=== PATIENT | female | born 1965 | race Caucasian/White ===

== ENCOUNTER → 2017-01-03 16:55 | Outpatient (CLI) | payer BC ==
[2014-08-27 15:09] VITALS: BMI 21.0
[~2017-01-03 16:55] MED LIST: COLACE100 MG PO; HYDROCODON-ACE1 EAC7 PO; IBUPROFEN600 MG PO; IBUPROFEN800 MG PO; MACROBID100 MG PO; PERCOCET 10/3251 TA1 PO; PROTONIX40 MG PO; ROBAXIN500 MG PO; VIVELLE-DOT 00.05 MG TD
== END | disposition home or self-care (01) ==
LOC: D.MAMMO 08:15
DX: Z12.31 Encounter for screening mammogram for malignant neoplasm of breast (principal)

== ENCOUNTER → 2017-01-13 16:47 | Outpatient (CLI) | payer BC ==
[2014-08-27 15:09] VITALS: BMI 21.0
== END | disposition home or self-care (01) ==
LOC: D.MAMMO 09:00 → D.US 01-25 11:30 → D.MAMMO 01-31 14:30
DX: R92.8 Other abnormal and inconclusive findings on diagnostic imaging of breast (principal)

== ENCOUNTER → 2017-11-15 16:40 | Outpatient (CLI) | payer BC ==
[2014-08-27 15:09] VITALS: BMI 21.0
== END | disposition home or self-care (01) ==
LOC: D.MAMMO 10-25 13:30
DX: N64.4 Mastodynia (principal); N63.10 Unspecified lump in the right breast, unspecified quadrant

== ENCOUNTER 2018-11-16 09:00 | Outpatient (CLI) | payer BC ==
[2014-08-27 15:09] VITALS: BMI 21.0
== END 2018-11-16 10:00 | disposition home or self-care (01) ==
LOC: D.MAMMO 09:00
PROVIDERS: ATTEND Family Medicine
DX: Z12.31 Encounter for screening mammogram for malignant neoplasm of breast (principal)

== ENCOUNTER → 2018-11-30 09:00 | Outpatient (CLI) | payer BC ==
[2014-08-27 15:09] VITALS: BMI 21.0
== END | disposition home or self-care (01) ==
LOC: D.MAMMO 09:00
PROVIDERS: ATTEND Family Medicine
DX: N64.89 Other specified disorders of breast (principal)

== ENCOUNTER → 2020-03-13 07:33 | Outpatient (CLI) | payer BC ==
[2014-08-27 15:09] VITALS: BMI 21.0
== END | disposition home or self-care (01) ==
LOC: D.US 07:33
PROVIDERS: ATTEND Family Medicine
DX: M71.20 Synovial cyst of popliteal space [Baker], unspecified knee (principal); I80.9 Phlebitis and thrombophlebitis of unspecified site

== ENCOUNTER 2020-04-30 17:00 | Outpatient (CLI) | payer BC ==
[2014-08-27 15:09] VITALS: BMI 21.0
== END 2020-04-30 23:59 | disposition home or self-care (01) ==
LOC: D.MAMMO 17:00
PROVIDERS: ATTEND Obstetrics & Gynecology
DX: Z12.31 Encounter for screening mammogram for malignant neoplasm of breast (principal)

== ENCOUNTER 2020-05-11 08:00 | Outpatient (CLI) | payer BC ==
[2014-08-27 15:09] VITALS: BMI 21.0
== END 2020-05-11 14:37 | disposition home or self-care (01) ==
LOC: D.MAMMO 08:00
PROVIDERS: ATTEND Family Medicine
DX: R92.8 Other abnormal and inconclusive findings on diagnostic imaging of breast (principal)

== ENCOUNTER 2020-06-05 13:00 | Outpatient (CLI) | payer BC ==
[2014-08-27 15:09] VITALS: BMI 21.0
== END 2020-06-05 23:59 | disposition home or self-care (01) ==
LOC: D.MAMMO 13:00
PROVIDERS: ATTEND Family Medicine
DX: N63.20 Unspecified lump in the left breast, unspecified quadrant (principal)

== ENCOUNTER 2020-11-26 10:30 | Outpatient (CLI) | payer BC ==
[2014-08-27 15:09] VITALS: BMI 21.0
== END 2020-11-26 23:59 | disposition home or self-care (01) ==
LOC: D.MAMMO 10:30
PROVIDERS: ATTEND Surgery
DX: Z12.31 Encounter for screening mammogram for malignant neoplasm of breast (principal); Z85.3 Personal history of malignant neoplasm of breast